=== PATIENT | male | born 1995 | race Caucasian/White ===

== ENCOUNTER 2018-10-02 09:44 | Emergency (ER) | payer SELFPAY ==
[~2018-10-02] VITALS: Ht 172.7 cm; Wt 92.9 kg
[2018-10-02 09:49] VITALS: BP 145/75; PULSE 96; RESP 20; Ht 172.7 cm; Wt 92.9 kg
--- NOTE | 2018-10-02 10:55 | ERD ---
ER Documentation Chief Complaint Chief Complaint Complains of an abscess under the right arm HPI 23-year-old male with no past medical history presents with complaint of mass in the right axilla Tuesday. Masses is erythematous and tender to palpation. Mass is continuously getting larger. Denies any predisposing factors. Currently not taking any medications. Denies fever, chills. Denies past medical history. Denies allergies. Denies medications. Denies surgeries. Denies alcohol, tobacco, drug use. Up to date on vaccines. ROS All systems reviewed and are negative except as per history of present illness. Medications Home Meds Active Scripts Hydrocodone/Acetaminophen (Lee 5-325 Tablet) 1 Each Tablet, 1-2 TAB PO Q6H PRN for PAIN, #16 TAB Prov:KINA MARTIN 10/02/18 Ibuprofen* (Motrin*) 600 Mg Tab, 600 MG PO Q6H PRN for PAIN AND OR ELEVATED TEMP, #30 TAB Prov:KINA MARTIN 10/02/18 Cephalexin* (Keflex*) 500 Mg Capsule, 500 MG PO QID for abscess for 7 Days, CAP Prov:KINA MARTIN 10/02/18 Sulfamethoxazole/Trimethoprim* (Bactrim Ds* Tablet) 1 Each Tablet, 1 TAB PO BID for abscess, #14 TAB Prov:KINA MARTIN 10/02/18 Allergies Allergies: Coded Allergies: No Known Allergy (Unverified , 10/02/18) PMhx/Soc Hx Alcohol Use: Yes (OCCASSIONAL) Hx Substance Use: Yes (MARIJUANA) Hx Tobacco Use: No FmHx Family History: No diabetes, No coronary disease, No other Physical Exam Vitals Vital Signs Date Temp Pulse Resp B/P (MAP) Pulse Ox O2 O2 Flow FiO2 Time Delivery Rate 10/02/18 98.6 96 20 145/75 100 09:49 (98) Physical Exam Const: No acute distress Head: Atraumatic Eyes: Normal Conjunctiva ENT: Normal External Ears, Nose and Mouth. Neck: Full range of motion. No meningismus. Resp: Clear to auscultation bilaterally Cardio: Regular rate and rhythm, no murmurs Abd: Soft, non tender, non distended. Normal bowel sounds Skin: Approximately 4 cm erythematous fluctuant tender to palpation mass located under the right axilla. Some lymphatic streaking noted. Surrounding area of erythema. No draining noted. Neur: Awake and alert Psych: Normal Mood and Affect Results 24 hrs Current Medications Medications Dose Sig/Julianna Start Time Status Last (Trade) Ordered Route PRN Stop Time Admin Dose Reason Admin Lidocaine 20 ml ONCE ONCE 10/02/18 DC (Xylocaine SC 11:00 1% (Mdv) 20 10/02/18 11:01 ml) Lidocaine 1 applic ONCE ONCE 10/02/18 DC 10/02/18 (Lmx 4% Plus) TOP 11:00 11:02 10/02/18 11:01 1 tab ONCE ONCE 10/02/18 DC 10/02/18 Acetaminophen PO 11:00 11:02 / 10/02/18 11:01 Hydrocodone Bitart (Lee (5/325)) Procedures/MDM Abscess Incision and Drainage with irrigation by me: Location: Right axilla Anesthesia: Local 1% Lidocaine Technique: Irrigated. Disrupted loculations w/ instrumentation Packing: Gauze Complications: Neurovascularly intact post procedure 48 hour wound check. Scar minimization instructions given. 23-year-old male with no past medical history presents with complaint of mass in the right axilla Tuesday. Masses is erythematous and tender to palpation. Mass is continuously getting larger. Denies any predisposing factors. Currently not taking any medications. Denies fever, chills. Abscesses incised and drained without complications using the above technique. I have low suspicion for sepsis, neurovascular compromise, or other emergent condition. Patient discharged with Rx for Bactrim and Keflex ibuprofen and Lee due to acute pain, and told to return in 2 days for wound check. Patient discharged with strict ER precautions. Patient advised to follow up with PMD. All questions answered at discharge. Departure Diagnosis: Primary Impression: Abscess Condition: Stable KINA MARTIN Oct 02, 2018 10:55
[2018-10-02] MEDS ORDERED: SULF1TAB31 PO (10:57)
[2018-10-02] MEDS ORDERED: CEPH-443 PO (10:59)
[2018-10-02] MEDS ORDERED: IBUP-1542 PO (11:00)
[2018-10-02] MEDS ORDERED: LIDOCAINE 4% CR TOP ONE (11:00)
[2018-10-02] MEDS ORDERED: HYDROCODONE/APAP (5/325) TAB PO ONE (11:00)
[2018-10-02] MEDS ORDERED: LIDOCAINE 1% (MDV) 20 ML INJ SC ONE (11:00)
[2018-10-02] MEDS ORDERED: HYDR-4011 PO (12:23)
== END 2018-10-02 12:45 | disposition home or self-care (01) ==
LOC: FTE 09:44
DX: L02.413 Cutaneous abscess of right upper limb (principal)